=== PATIENT | female | born 1950 | race Caucasian/White ===

== ENCOUNTER → 2024-09-26 10:51 | Outpatient (CLI) | payer MEDICARE, OTHER, SELFPAY ==
[2024-09-26 11:42] LABS: Add Manual Diff / Slide Review NO; Hematocrit 36.8 % (36-46); Hemoglobin 12.2 g/dL (12.0-16.0); Lymphocytes Absolute Auto 1400 /uL (1100-4500); Mean Corpuscular HGB Conc 33.1 % (30-36); Mean Corpuscular Hemoglobin 27.0 PG (26-34); Mean Corpuscular Volume 81.5 fL (80-100); Platelet Count 202 X10^3/uL (150-400)
[2024-09-26 12:00] LABS: Alanine Aminotransferase 13 IU/L (<35); Albumin 3.7 g/dL (3.5-5.0); Albumin Globulin Ratio 1.3 (1.0-2.8); Alkaline Phosphatase 118 U/L (38-126); Blood Urea Nitrogen 12 mg/dL (7-17); Calcium 9.2 mg/dL (8.4-10.2); Carbon Dioxide 27 mmol/L (22-32); Chloride 107 mmol/L (98-107); Cholesterol 153 mg/dL (140-199); Estimated Glomerular Filt Rate > 60 mL/min (>60); Globulin 2.8 g/dL (1.7-4.1); Glucose 95 mg/dL (70-99); HDL Cholesterol 56 mg/dL (40-60); HEMOLYSIS 15 (0-50); Potassium 5.2 mmol/L (3.4-5.1); Sodium 141 mmol/L (137-145); Total Protein 6.5 g/dL (6.3-8.2); Triglycerides 69 mg/dL (35-150)
[2024-09-26 12:54] LABS: Hemoglobin A1C% w Est Avg Glu 5.1 % (4.0-6.0)
== END ==
DX: R73.01 Impaired fasting glucose (principal); Z79.899 Other long term (current) drug therapy; R30.0 Dysuria
CPT/HCPCS: 36415; 80053; 80061; 83036; 85025

== ENCOUNTER 2025-01-13 11:10 | Emergency (ER) | payer MEDICARE, OTHER, SELFPAY ==
--- NOTE | 2025-01-13 11:16 | ED_ITS ---
HPI - Syncope General Chief Complaint: Fall Stated Complaint: fell th hit head fell again sat left side weak Time Seen by Provider: 01/13/25 11:16 History of Present Illness HPI narrative: Patient is a 74-year-old female presenting today after 3 different falls. 1st she fell about 2 days ago she felt like her left knee gave out while walking and she fell backwards hitting her head. She did cut the back for head. She did not lose consciousness she felt nauseous briefly but no vomiting. She is not on any antiplatelet or anticoagulation medication. She fell again yesterday morning again felt like maybe it was her left leg that is giving out on her no chest pain no palpitations no shortness a breath. No significant injury yesterday today decided to come in and get checked. She has no past medical history she sees Dr. Villalba Related Data Allergies Allergy/AdvReac Type Severity Reaction Status Date / Time diazepam (From Valium) AdvReac Agitated Verified 01/13/25 11:20 Patient History Social History Smoking Status: Never smoker Exam Initial Vital Signs Initial Vital Signs: Vital Signs Temperature 97.3 F L 01/13/25 11:17 Pulse Rate 76 01/13/25 11:17 Respiratory Rate 16 01/13/25 11:17 Blood Pressure 151/71 H 01/13/25 11:17 Pulse Oximetry 99 01/13/25 11:17 Oxygen Delivery Method Room Air 01/13/25 11:17 GENERAL: Well-appearing, well-nourished and in no acute distress. HEENT: Head dried blood posteriorly no depressions no crepitation CARDIOVASCULAR: Regular rate and rhythm without murmurs, rubs or gallops. RESPIRATORY: Breath sounds equal bilaterally, no wheezes rales or rhonchi. ABDOMEN: Soft, nontender. Normoactive bowel sounds all 4 quadrants. No guarding or rebound. EXTREMITIES: Normal range of motion, no clubbing or edema. Neurovascularly intact NEUROLOGICAL: Alert and oriented x4.Normal gait and speech. Cranial nerves II through XII grossly intact. SKIN: Warm, dry, no laceration, no petechiae, no rashes or lesions. Course Orders Ordered: ED Orders 01/13/25 11:19 CT head/brain wo con Stat XR chest 1V Stat XR knee LT 3V Stat EKG-12 Lead Stat 01/13/25 11:35 Complete Blood Count AUTO DIFF Stat Comprehensive Metabolic Panel Stat Lipase Stat Magnesium Stat NT-proBNP (BNP-Adult 18+) Stat Troponin I Stat 01/13/25 12:30 Urine Culture Stat Urine Microscopic Stat Vital Signs Vital signs: Vital Signs - 8 hr 01/13/25 11:17 01/13/25 13:57 Temperature 97.3 F L Pulse Rate 76 62 Respiratory Rate 16 20 Blood Pressure 151/71 H 139/71 Pulse Oximetry 99 99 Oxygen Delivery Method Room Air Room Air MDM - Syncope Lab Data 01/13/25 11:35 01/13/25 11:35 Labs: Lab Results 01/13/25 01/13/25 Range/Units 11:35 12:30 WBC 4.8 (4.5-11.0) X10^3/uL RBC 4.62 (4.0-5.2) X10^6/uL Hgb 12.4 (12.0-16.0) g/dL Hct 37.5 (36-46) % MCV 81.1 (80-100) fL MCH 26.9 (26-34) PG MCHC 33.2 (30-36) % RDW 17.4 H (11.6-14.8) % Plt Count 200 (150-400) X10^3/uL Neut % (Auto) 58.7 (50-75) % Lymph % (Auto) 33.8 (25-40) % [place] % (Auto) 4.5 (3-14) % Eos % (Auto) 2.0 (2-4) % Baso % (Auto) 1.0 (0-2) % Neut # (Auto) 2800 (1382-5487) /uL Lymph # (Auto) 1600 (5359-1990) /uL [place] # (Auto) 200 (0-900) /uL Eos # (Auto) 100 (0-450) /uL Baso # (Auto) 0 (0-100) /uL Sodium 143 (137-145) mmol/L Potassium 3.5 (3.4-5.1) mmol/L Chloride 108 H (98-107) mmol/L Carbon Dioxide 25 (22-32) mmol/L BUN 9 (7-17) mg/dL Creatinine 0.55 (0.52-1.04) mg/dL Estimated GFR > 60 (>60) mL/min BUN/Creatinine Ratio 16.4 (6-22) Glucose 93 (70-99) mg/dL Calcium 8.5 (8.4-10.2) mg/dL Magnesium 2.3 (1.6-2.3) mg/dL Total Bilirubin 0.3 (0.2-1.3) mg/dL AST 21 (14-36) IU/L ALT 14 (<35) IU/L Alkaline Phosphatase 119 (38-126) U/L Troponin I < 0.012 (0.01-0.034) ng/mL NT-Pro-B Natriuret Pep 59 (<125) pg/mL Total Protein 7.4 (6.3-8.2) g/dL Albumin 4.0 (3.5-5.0) g/dL Globulin 3.4 (1.7-4.1) g/dL Albumin/Globulin Ratio 1.2 (1.0-2.8) Lipase 55 (23-300) U/L Urine RBC 0-1/hpf (0-5/HPF) Urine WBC 1-5/hpf (0-5/HPF) Ur Squamous Epith Cells 0-1 /hpf (0-5/HPF) Urine Bacteria Moderate (10-30) H (None) Urine Mucus 1+ H (Negative) Vol Urine Centrifuged 10ml (spun) Urine Dip Bedside Urine Glucose Negative Bedside Urine Bilirubin - Negative Bedside Urine Ketone - Negative Urine Specific [place] 1.015 Bedside Urine Occult Blood + Bedside Urine pH 6.0 Bedside Urine Protein - Negative Bedside Urine Urobilinogen - Negative Bedside Urine Nitrite - Negative Bedside Urine Leukocytes - Negative Esterase Imaging Data CT scan - head: Radiologist's Impression: PROCEDURE: CT HEAD/BRAIN WO CON INDICATIONS: fall 3 days ago hit head nausea TECHNIQUE: Noncontrast 4.5 mm thick angled axial sections acquired from the foramen magnum to the vertex, with coronal and sagittal reformats. For radiation dose reduction, the following was used: automated exposure control, adjustment of mA and/or kV according to patient size. COMPARISON: None. FINDINGS: Image quality: Diagnostic. CSF spaces: Basal cisterns are patent. No extra-axial fluid collections. Ventricles are normal in size and shape. Brain: No midline shift. No intracranial mass effect or hemorrhage. [place]- white matter interface is normal. Skull and face: Calvarium and visualized facial bones are intact, without suspicious lesions. Sinuses: Visualized sinuses and mastoids are clear. IMPRESSION: No acute intracranial pathology. Dictated by: Loy Babb M.D. on 01/13/2025 at 10:52 Approved by: Loy Babb M.D. on 01/13/2025 at 10:53 Extremity x-ray #1: Radiologist's Impression: PROCEDURE: XR KNEE LT 3V INDICATIONS: pain fall TECHNIQUE: 3 views of the knee were acquired. COMPARISON: None. FINDINGS: Bones: No fractures or dislocations. No suspicious bony lesions. Mild joint space narrowing and osteophyte formation most prominent patellofemoral compartment with large patellar osteophytes. Soft tissues: Small joint effusion. No suspicious soft tissue calcifications. IMPRESSION: No acute bony abnormality. Small effusion. Moderate degenerative changes most prominent in the patellofemoral compartment. Dictated by: Loy Babb M.D. on 01/13/2025 at 11:21 Chest x-ray: Radiologist's Impression: PROCEDURE: XR CHEST 1V INDICATIONS: syncope TECHNIQUE: One view of the chest was acquired. COMPARISON: None. FINDINGS: Surgical changes and devices: None. Lungs and pleura: Lungs are clear. No pleural effusions or pneumothorax. Left lobe calcified nodule measuring 7 mm, likely granuloma Mediastinum: Mediastinal contours appear normal. Heart size is normal. Bones and chest wall: No suspicious bony lesions. Overlying soft tissues appear unremarkable. Moderate spondylitic changes of the visualized thoracic spine. IMPRESSION: No acute cardiopulmonary abnormality is seen. Dictated by: Loy Babb M.D. on 01/13/2025 at 11:23 ECG Data Attestation: I personally reviewed and interpreted this ECG as follows: Prior ECG tracings: not available for review Interpretation: Normal sinus rhythm rate 69 CT interval 178 QRS [address] changes no T- wave inversions Q-wave noted in AVF and V3 MDM Narrative Medical decision making narrative: [facility] CC: Multiple falls Complicating co-morbidities: None Data collected from: Patient and has been Medical records reviewed: [ ] Differential considered: Syncope cardiogenic neurogenic vasovagal, anemia electrolyte abnormality sepsis musculoskeletal Exam documented above, pertinent findings include: Alert well-appearing 74-year-old female dried blood posteriorly but no crepitation or depression neck is nontender NIH of 0 Lab Test results independently reviewed as above. Pertinent findings: CBC unremarkable no anemia or leukocytosis CMP no electrolyte abnormality no BIJAL Troponin negative Urinalysis positive for hematuria and bacteria but not having any signs or symptoms no evidence of sepsis Independently reviewed EKG as above Sinus rhythm Q-waves noted but no priors to compare no ST changes Imaging studies independently reviewed: Chest x-ray no acute cardiopulmonary process Head CT no intracranial hemorrhage Knee x-ray shows small effusion Consultations: [ ] Treatments: None Re-evaluations: Patient is feeling same but able to ambulate. Vitals are stable Discussion: Patient is a 74-year-old female presenting to day with multiple falls. She did fall and hit her head feels like her left knee is giving out on her. She is found to have a small left effusion with degenerative changes. Blood work is overall reassuring EKGs shows Q-waves but no priors repair she is not having any chest pain troponin is negative met this time no need for any further workup recommend wearing knee brace and following up with Orthopedics. Urinalysis does have some bacteria and hematuria and a bit at signs or symptoms no evidence of sepsis will hold off treating until altered sensitivity returns. Discharge Plan Departure Patient Disposition: Home Clinical Impression: Arthritis of knee, Syncope Activity Restrictions/Additional Instructions: *You have been diagnosed with knee pain, syncope *What to do: At this time I do recommend knee brace while being active. Blood work and imaging today overall reassuring but you do have arthritis of your knee. May need referral to orthopedic *Continue to take medications as directed Tylenol Motrin as needed for knee pain *Follow up with your primary care provider in 2-3 days or call [phone] *Return to ER if you should have increasing knee pain recurrent syncopal episodes chest pain or palpitations or any new, worsening or concerning symptoms Referrals: oLy Meneses DO [Primary Care Provider, [facility]] Stand Alone Forms: Patient Portal/API
[2025-01-13 11:17] VITALS: BP 151/71; PULSE 76; RESP 16; TEMP 36.3; O2SAT 99; BMI 32.8
--- NOTE | 2025-01-13 11:19 | DI.RAD.S_ITS ---
PROCEDURE: XR CHEST 1V INDICATIONS: syncope TECHNIQUE: One view of the chest was acquired. COMPARISON: None. FINDINGS: Surgical changes and devices: None. Lungs and pleura: Lungs are clear. No pleural effusions or pneumothorax. Left lobe calcified nodule measuring 7 mm, likely granuloma Mediastinum: Mediastinal contours appear normal. Heart size is normal. Bones and chest wall: No suspicious bony lesions. Overlying soft tissues appear unremarkable. Moderate spondylitic changes of the visualized thoracic spine. IMPRESSION: No acute cardiopulmonary abnormality is seen. Dictated by: Loy Babb M.D. on 01/13/2025 at 11:23 Approved by: Loy Babb M.D. on 01/13/2025 at 11:24
--- NOTE | 2025-01-13 11:19 | EKG_ITS ---
[place] [id number] [place] [id number] Test Date: 2025-01-13 Pat Name: Greta Headley Department: [facility] Room: Gender: Female Geoscientist: ARACELI : 1950 Requested By: Order Number: [id number] Reading MD: Nino Reese MD Measurements Intervals [place] Rate: 74 P: 146 RI: 166 QRS: 206 QRSD: 84 T: 156 QT: 380 QTc: 421 Interpretive Statements Suspect arm lead reversal, interpretation assumes no reversal Unusual P axis, possible ectopic atrial rhythm Anterolateral infarct , age undetermined NO PRIOR TRACING Electronically Signed On 01-14-2025 8:03:39 PST by Nino Reese MD
--- NOTE | 2025-01-13 11:19 | DI.RAD.S_ITS ---
PROCEDURE: XR KNEE LT 3V INDICATIONS: pain fall TECHNIQUE: 3 views of the knee were acquired. COMPARISON: None. FINDINGS: Bones: No fractures or dislocations. No suspicious bony lesions. Mild joint space narrowing and osteophyte formation most prominent patellofemoral compartment with large patellar osteophytes. Soft tissues: Small joint effusion. No suspicious soft tissue calcifications. IMPRESSION: No acute bony abnormality. Small effusion. Moderate degenerative changes most prominent in the patellofemoral compartment. Dictated by: Loy Babb M.D. on 01/13/2025 at 11:21 Approved by: Loy Babb M.D. on 01/13/2025 at 11:23
--- NOTE | 2025-01-13 11:19 | DI.CT.S_ITS ---
PROCEDURE: CT HEAD/BRAIN WO CON INDICATIONS: fall 3 days ago hit head nausea TECHNIQUE: Noncontrast 4.5 mm thick angled axial sections acquired from the foramen magnum to the vertex, with coronal and sagittal reformats. For radiation dose reduction, the following was used: automated exposure control, adjustment of mA and/or kV according to patient size. COMPARISON: None. FINDINGS: Image quality: Diagnostic. CSF spaces: Basal cisterns are patent. No extra-axial fluid collections. Ventricles are normal in size and shape. Brain: No midline shift. No intracranial mass effect or hemorrhage. [place]- white matter interface is normal. Skull and face: Calvarium and visualized facial bones are intact, without suspicious lesions. Sinuses: Visualized sinuses and mastoids are clear. IMPRESSION: No acute intracranial pathology. Dictated by: Loy Babb M.D. on 01/13/2025 at 10:52 Approved by: Loy Babb M.D. on 01/13/2025 at 10:53
--- NOTE | 2025-01-13 11:28 | EKG_ITS ---
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
[2025-01-13 11:50] LABS: Add Manual Diff / Slide Review NO; Hematocrit 37.5 % (36-46); Hemoglobin 12.4 g/dL (12.0-16.0); Lymphocytes Absolute Auto 1600 /uL (1100-4500); Mean Corpuscular HGB Conc 33.2 % (30-36); Mean Corpuscular Hemoglobin 26.9 PG (26-34); Mean Corpuscular Volume 81.1 fL (80-100); Platelet Count 200 X10^3/uL (150-400)
[2025-01-13 11:56] LABS: Alanine Aminotransferase 14 IU/L (<35); Albumin 4.0 g/dL (3.5-5.0); Albumin Globulin Ratio 1.2 (1.0-2.8); Alkaline Phosphatase 119 U/L (38-126); Blood Urea Nitrogen 9 mg/dL (7-17); Calcium 8.5 mg/dL (8.4-10.2); Carbon Dioxide 25 mmol/L (22-32); Chloride 108 mmol/L (98-107); Estimated Glomerular Filt Rate > 60 mL/min (>60); Globulin 3.4 g/dL (1.7-4.1); Glucose 93 mg/dL (70-99); HEMOLYSIS 15 (0-50); Lipase 55 U/L (23-300); Magnesium 2.3 mg/dL (1.6-2.3); Potassium 3.5 mmol/L (3.4-5.1); Sodium 143 mmol/L (137-145); Total Protein 7.4 g/dL (6.3-8.2)
[2025-01-13 12:08] LABS: NT-proBNP (BNP-Adult 18+) 59 pg/mL (<125); Troponin I < 0.012 ng/mL (0.01-0.034)
[2025-01-13 13:57] VITALS: BP 139/71; PULSE 62; RESP 20; O2SAT 99
== END 2025-01-13 13:59 | disposition home or self-care (01) ==
PROVIDERS: Emergency Provider Emergency Medicine; PCP Family Medicine
DX: M17.12 Unilateral primary osteoarthritis, left knee (principal); R55 Syncope and collapse; R11.0 Nausea; S09.90XA Unspecified injury of head, initial encounter; M25.562 Pain in left knee; W18.30XA Fall on same level, unspecified, initial encounter; R29.6 Repeated falls
CPT/HCPCS: 36415; 70450; 71045; 73562; 80053; 81003; 81015; 83690; 83735; 83880; 84484; 85025; 87086; 93005; 99283; 99284